=== PATIENT | female | born 1955 | race Caucasian/White ===

== ENCOUNTER 2019-08-26 07:09 | Day surgery (SDC) | payer MEDICARE, OTHER ==
[~2019-08-26] VITALS: Ht 172.7 cm; Wt 110.2 kg
[2019-08-26] MEDS ORDERED: AMLO5 (07:43)
[2019-08-26] MEDS ORDERED: LISI20 (07:43)
[2019-08-26] MEDS ORDERED: PANT40 (07:43)
[2019-08-26] MEDS ORDERED: ALBU3IS (07:44)
[2019-08-26] MEDS ORDERED: OXYC5 (07:44)
== END 2019-08-26 08:35 | disposition home or self-care (01) ==
LOC: ORSCSDS 07:09
PROVIDERS: Anesthesiology
PROC: 3E0R33Z Introduction of Anti-inflammatory into Spinal Canal, Percutaneous Approach (ICD-10-PCS; principal; 2019-08-26 08:15)
DX: M51.16 Intervertebral disc disorders with radiculopathy, lumbar region (principal); I10 Essential (primary) hypertension; K21.9 Gastro-esophageal reflux disease without esophagitis; J45.909 Unspecified asthma, uncomplicated; B19.10 Unspecified viral hepatitis B without hepatic coma; E66.9 Obesity, unspecified; Z68.36 Body mass index [BMI] 36.0-36.9, adult; Z87.891 Personal history of nicotine dependence; Z79.899 Other long term (current) drug therapy
CPT/HCPCS: J1040

== ENCOUNTER 2020-03-09 10:54 | Day surgery (SDC) | payer MEDICARE, OTHER ==
[~2020-03-09] VITALS: Ht 172.7 cm; Wt 110.3 kg
[~2020-03-09 10:54] MED LIST: ALBU3IS; AMLO5; LISI20; OXYC5; PANT40
[2020-03-09] MEDS ORDERED: ATOR20 PO (11:07)
[2020-03-09] MEDS ORDERED: DICL75ER PO (11:08)
== END 2020-03-09 11:43 | disposition home or self-care (01) ==
LOC: ORSCSDS 10:54
PROVIDERS: Anesthesiology
PROC: 3E0R33Z Introduction of Anti-inflammatory into Spinal Canal, Percutaneous Approach (ICD-10-PCS; principal; 2020-03-09 11:45)
DX: M51.16 Intervertebral disc disorders with radiculopathy, lumbar region (principal); B19.10 Unspecified viral hepatitis B without hepatic coma; J45.909 Unspecified asthma, uncomplicated; K21.9 Gastro-esophageal reflux disease without esophagitis; I10 Essential (primary) hypertension; E66.01 Morbid (severe) obesity due to excess calories; Z68.36 Body mass index [BMI] 36.0-36.9, adult; Z87.891 Personal history of nicotine dependence; Z79.899 Other long term (current) drug therapy
CPT/HCPCS: J1040

== ENCOUNTER 2020-06-17 10:22 | Day surgery (SDC) | payer MEDICARE, OTHER ==
[~2020-06-17] VITALS: Ht 172.7 cm; Wt 112.6 kg
[~2020-06-17 10:22] MED LIST changes: +ATOR20 PO; +DICL75ER PO
== END 2020-06-17 11:35 | disposition home or self-care (01) ==
LOC: ORSCSDS 10:22
PROVIDERS: Anesthesiology
PROC: 3E0R33Z Introduction of Anti-inflammatory into Spinal Canal, Percutaneous Approach (ICD-10-PCS; principal; 2020-06-17 11:30)
DX: M51.16 Intervertebral disc disorders with radiculopathy, lumbar region (principal); I10 Essential (primary) hypertension; J45.909 Unspecified asthma, uncomplicated; B19.10 Unspecified viral hepatitis B without hepatic coma; K21.9 Gastro-esophageal reflux disease without esophagitis; E66.9 Obesity, unspecified; Z68.38 Body mass index [BMI] 38.0-38.9, adult; Z87.891 Personal history of nicotine dependence; Z79.899 Other long term (current) drug therapy
CPT/HCPCS: J1040

== ENCOUNTER 2021-01-29 03:51 | Emergency (ER) | payer MEDICARE, OTHER ==
[~2021-01-29] VITALS: Ht 172.7 cm; Wt 111.1 kg
[~2021-01-29 03:51] MED LIST changes: -LISI20; +LISI20 PO
[2021-01-29 05:29] LABS: Influenza A, PCR NEGATIVE (NEGATIVE); Influenza B, PCR NEGATIVE (NEGATIVE); Resp Syncytial Virus, PCR NEGATIVE (NEGATIVE); SARS-Cov-2 (COVID-19) PCR, MMC NEGATIVE (NEGATIVE)
== END 2021-01-29 07:38 | disposition home or self-care (01) ==
LOC: ER 03:51
PROVIDERS: Emergency Medicine
DX: J20.9 Acute bronchitis, unspecified (principal); Z20.822 Contact with and (suspected) exposure to COVID-19; I10 Essential (primary) hypertension; Z87.891 Personal history of nicotine dependence; Z88.5 Allergy status to narcotic agent; Z88.8 Allergy status to other drugs, medicaments and biological substances; Z79.899 Other long term (current) drug therapy
CPT/HCPCS: 0241U; 87081; 87430; 99283

== ENCOUNTER → 2021-05-31 | Outpatient (CLI) | payer MEDICARE, OTHER ==
[2021-05-31 10:00] LABS: Source, Urine Clean Catch
[2021-05-31 12:04] LABS: Appearance, Urine Cloudy (Clear); Bilirubin, Urine Neg (Neg); Blood, Urine 2+ (Neg); Color, Urine Yellow (P-Yellow); Glucose Qualitative, Urine Neg (Neg); Ketones, Urine Neg (Neg); Leukocyte Esterase, Urine 2+ (Neg); Nitrite, Urine Neg (Neg); Protein, Urine 2+ (Neg); Specific Gravity, Urine 1.015 (1.003-1.022); Urobilinogen, Urine NORM (Normal)
[2021-05-31 12:38] LABS: Bacteria Few /hpf; Red Blood Cells, Urine 25-50 /hpf (0-2); Squamous Epithelial Cells Few /hpf (Few); White Blood Cells, Urine 50-100 /hpf (0-5)
== END ==
LOC: LAB SHORT 08:30
PROVIDERS: Physician Assistant Medical
DX: N30.90 Cystitis, unspecified without hematuria (principal)
CPT/HCPCS: 81001; 87077; 87086; 87186

== ENCOUNTER 2021-08-01 14:09 | Emergency (ER) | payer MEDICARE, OTHER ==
[~2021-08-01] VITALS: Ht 157.5 cm; Wt 110.2 kg
[~2021-08-01 14:09] MED LIST changes: -CEFP200 PO; -LISI5 PO; -ONDA4 PO
[2021-08-01 15:00] LABS: BASOPHILS ABSOLUTE AUTO 0.03 K/mm3 (0.00-0.23); BASOPHILS PERCENT AUTO 1 % (0-2); EOSINOPHILS ABSOLUTE AUTO 0.27 K/mm3 (0.00-0.68); EOSINOPHILS PERCENT AUTO 4 % (0-6); Hemoglobin 13.3 g/dL (11.5-16.0); IMMATURE GRAN ABSOLUTE AUTO 0.02 K/mm3 (0.00-0.10); IMMATURE GRAN PERCENT AUTO 0 % (0-1); LYMPHOCYTES ABSOLUTE AUTO 1.54 K/mm3 (0.84-5.20); LYMPHOCYTES PERCENT AUTO 23 % (21-46); MONOCYTES PERCENT AUTO 8 % (4-13); Mean Corpuscular HGB 30.3 pg (26.0-34.0); Mean Corpuscular HGB Conc 32.4 g/dL (31.5-36.5); Mean Corpuscular Volume 93 fL (80-100); Mean Platelet Volume 9.9 fL (9.1-12.4); NEUTROPHILS ABSOLUTE AUTO 4.24 K/mm3 (1.96-9.15); NEUTROPHILS PERCENT AUTO 64 % (41-73); Platelet Count 315 K/mm3 (150-400); RDW Coefficient Variation 13.2 % (11.7-14.2); RDW Standard Deviation 45.4 fL (35.1-46.3); Red Blood Cell Count 4.39 M/mm3 (3.80-5.20)
[2021-08-01 15:10] LABS: Albumin, Blood 3.9 g/dL (3.4-5.0); Bilirubin, Total 0.3 mg/dL (0.1-1.0); Bun/Creatinine Ratio 26.2 (12.0-20.0); Calcium, Blood 10.7 mg/dL (8.5-10.1); Creatinine, Blood 0.8 mg/dL (0.40-1.00); Globulin, Blood 4.1 g/dL (2.2-4.0); Potassium, Blood 4.6 mmol/L (3.5-5.5)
[2021-08-01 15:51] LABS: Source, Urine Clean Catch
[2021-08-01 16:04] LABS: Appearance, Urine Clear (Clear); Bilirubin, Urine Neg (Neg); Blood, Urine Neg (Neg); Color, Urine Yellow (P-Yellow); Glucose Qualitative, Urine Neg (Neg); Ketones, Urine Neg (Neg); Leukocyte Esterase, Urine 1+ (Neg); Nitrite, Urine Neg (Neg); Protein, Urine Neg (Neg); Specific Gravity, Urine 1.025 (1.003-1.022); Urobilinogen, Urine NORM (Normal)
[2021-08-01 16:19] LABS: Bacteria Few /hpf; Red Blood Cells, Urine 0-2 /hpf (0-2); Squamous Epithelial Cells Few /hpf (Few)
[2021-08-01] MEDS ORDERED: LISI5 PO (17:01)
[2021-08-01] MEDS ORDERED: ONDA4 PO (17:26)
[2021-08-01] MEDS ORDERED: CEFP200 PO (17:26)
== END 2021-08-01 17:42 | disposition home or self-care (01) ==
LOC: ER 14:09
PROVIDERS: Physician Assistant
DX: N12 Tubulo-interstitial nephritis, not specified as acute or chronic (principal); I10 Essential (primary) hypertension; Z79.899 Other long term (current) drug therapy; Z87.891 Personal history of nicotine dependence; Z88.5 Allergy status to narcotic agent
CPT/HCPCS: 36415; 74176; 80053; 81001; 83690; 85025; A9270; J1885

== ENCOUNTER → 2021-08-01 | Outpatient (CLI) | payer MEDICARE, OTHER ==
[~2021-08-01] MED LIST changes: +CEFP200 PO; +LISI5 PO; +ONDA4 PO
== END ==
LOC: LAB SHORT 13:35 → LAB 13:35
DX: R10.11 Right upper quadrant pain (principal)
CPT/HCPCS: 87086

== ENCOUNTER 2021-11-17 10:59 | Emergency (ER) | payer MEDICARE, OTHER ==
[~2021-11-17] VITALS: Ht 172.7 cm; Wt 104.3 kg
[~2021-11-17 10:59] MED LIST changes: +CEFP200 PO; +LISI5 PO; +ONDA4 PO
== END 2021-11-17 12:31 | disposition home or self-care (01) ==
LOC: ER 10:59
DX: S50.02XA Contusion of left elbow, initial encounter (principal); S20.212A Contusion of left front wall of thorax, initial encounter; I10 Essential (primary) hypertension; Z88.8 Allergy status to other drugs, medicaments and biological substances; Z88.5 Allergy status to narcotic agent; Z79.899 Other long term (current) drug therapy; Z87.891 Personal history of nicotine dependence; W18.30XA Fall on same level, unspecified, initial encounter
CPT/HCPCS: 71046; 73080; 99283-25

== ENCOUNTER 2022-03-16 10:37 | Day surgery (SDC) | payer MEDICARE, OTHER ==
[~2022-03-16] VITALS: Ht 172.7 cm; Wt 108.5 kg
[2022-03-16] MEDS ORDERED: ALBU90OI INH (11:31)
== END 2022-03-16 14:10 | disposition home or self-care (01) ==
LOC: ORSCSDS 10:37
PROVIDERS: Orthopaedic Surgery
PROC: 0LB70ZZ Excision of Right Hand Tendon, Open Approach (ICD-10-PCS; principal; 2022-03-16 12:00)
DX: M67.431 Ganglion, right wrist (principal); I10 Essential (primary) hypertension; G47.33 Obstructive sleep apnea (adult) (pediatric); K21.9 Gastro-esophageal reflux disease without esophagitis; Z87.891 Personal history of nicotine dependence; Z79.899 Other long term (current) drug therapy
CPT/HCPCS: 88304; J0690; J1100; J1885; J2405; J2704; J2795; J3010; J7120

== ENCOUNTER 2022-05-14 07:29 | Day surgery (SDC) | payer MEDICARE, OTHER ==
[~2022-05-14] VITALS: Ht 170.2 cm; Wt 110.0 kg
[~2022-05-14 07:29] MED LIST changes: +ALBU90OI INH
--- NOTE | 2022-05-14 09:25 | NUR ---
05/14/22 0925 Julita Vines HISTORY, CHART, MEDICATIONS AND ALLERGIES REVIEWED BEFORE START OF PROCEDURE. PATIENT CONFIRMS NPO STATUS AND AGREES WITH SCHEDULED PROCEDURE. 3-LEAD EKG REVIEWED WITH PHYSICIAN PRIOR TO START OF PROCEDURE. MONITOR INTACT WITH CONTINUOUS PULSE OXIMETRY,CAPNOGRAPHY, 3-LEAD EKG, INTERMITTENT BP. SUPPLEMENTAL O2 TO BE TITRATED THROUGHOUT PROCEDURE TO MAINTAIN O2 SATURATION ABOVE 90%. PATIENT DETERMINED TO BE ASA APPROPRIATE FOR PROPOFOL SEDATION PRIOR TO START OF PROCEDURE BY DR. SCHMIDT
--- NOTE | 2022-05-14 10:05 | NUR ---
Discharge instructions reviewed with patient. Patient verbalizes understanding. Copy given to patient to take home. Patient States Post-Procedure ride home has been arranged. Discharged via wheelchair to private car for ride home.
== END 2022-05-14 22:53 | disposition home or self-care (01) ==
LOC: ORSCMMR 07:29 → ORD 08:30 → ORSCMMR 08:30
PROVIDERS: Internal Medicine Gastroenterology
PROC: 0DJD8ZZ Inspection of Lower Intestinal Tract, Via Natural or Artificial Opening Endoscopic (ICD-10-PCS; principal; 2022-05-14 08:30)
DX: Z12.11 Encounter for screening for malignant neoplasm of colon (principal); Z86.010 Personal history of colon polyps; I10 Essential (primary) hypertension; Z79.899 Other long term (current) drug therapy
CPT/HCPCS: J2704; J7120

== ENCOUNTER → 2022-07-23 | Outpatient (CLI) | payer MEDICARE, OTHER | END | disposition home or self-care (01) | LOC: PLD 07:24 → LAB 07:24 → LAB SHORT 07:24 | DX: M67.472 Ganglion, left ankle and foot (principal); R22.42 Localized swelling, mass and lump, left lower limb | CPT/HCPCS: 88108 ==

== ENCOUNTER 2022-11-26 06:11 | Day surgery (SDC) | payer MEDICARE, OTHER ==
[~2022-11-26] VITALS: Ht 170.2 cm; Wt 99.6 kg
--- NOTE | 2022-11-26 07:44 | NUR ---
11/26/22 0744 Scarlet Shelton ARMS SECURED ON PADDED ARM BOARDS.
[2022-11-26 08:30] VITALS: BP 122/65
--- NOTE | 2022-11-26 08:30 | NUR ---
11/26/22 0060 HEATHER PATTEN pt had pulled iv out leaving or. appeared to be patent but wehen removed in stepdown, it was already completeley removed catheter was intact and site was wdl. bleeding had stopped. coban and compression gauze placed as usual.
== END 2022-11-26 08:50 | disposition home or self-care (01) ==
LOC: ORSCSDS 06:11
PROVIDERS: Podiatrist Foot & Ankle Surgery
PROC: 0JBR0ZX Excision of Left Foot Subcutaneous Tissue and Fascia, Open Approach, Diagnostic (ICD-10-PCS; principal; 2022-11-26 07:30)
DX: M67.472 Ganglion, left ankle and foot (principal); I10 Essential (primary) hypertension; J44.9 Chronic obstructive pulmonary disease, unspecified; G47.33 Obstructive sleep apnea (adult) (pediatric); Z87.891 Personal history of nicotine dependence; Z79.899 Other long term (current) drug therapy
CPT/HCPCS: 88304; J0690; J1100; J1885; J2001; J2250; J2405; J2704; J3010; J7120

== ENCOUNTER 2022-12-12 06:56 | Day surgery (SDC) | payer MEDICARE, OTHER ==
[2022-12-12] VITALS (11 sets, daily range): BP systolic 107–161; BP diastolic 52–123
[~2022-12-12] VITALS: Ht 166 cm; Wt 99.2 kg
--- NOTE | 2022-12-12 07:24 | NUR ---
History, Chart, Medications and Allergies reviewed before start of procedure. Ambulatory in Day Surgery. Pre-Op teaching done. Pt verbalizes understanding. Patient confirms NPO status and agrees with scheduled surgery. Lungs clear T/O to Auscultation. Patient States Post-Procedure ride home has been arranged.
--- NOTE | 2022-12-12 08:02 | NUR ---
12/12/22 0802 Marleni Humphrey HISTORY, CHART, MEDICATIONS AND ALLERGIES REVIEWED BEFORE START OF PROCEDURE. PATIENT CONFIRMS NPO STATUS AND AGREES WITH SCHEDULED PROCEDURE. 3-LEAD EKG REVIEWED WITH PHYSICIAN PRIOR TO START OF PROCEDURE. MONITOR INTACT WITH CONTINUOUS PULSE OXIMETRY,CAPNOGRAPHY, 3-LEAD EKG, INTERMITTENT BP. SUPPLEMENTAL O2 TO BE TITRATED THROUGHOUT PROCEDURE TO MAINTAIN O2 SATURATION ABOVE 90%. PATIENT DETERMINED TO BE ASA APPROPRIATE FOR PROPOFOL SEDATION PRIOR TO START OF PROCEDURE BY .HURRICAINE SPRAY AND BITE BLOCK PLACED.
== END 2022-12-12 08:56 | disposition home or self-care (01) ==
LOC: ORSCMMR 06:56 → ORD 08:00 → ORSCMMR 08:56
PROVIDERS: Internal Medicine Gastroenterology
PROC: 0DB98ZX Excision of Duodenum, Via Natural or Artificial Opening Endoscopic, Diagnostic (ICD-10-PCS; principal; 2022-12-12 08:00)
PROC: 0DB48ZX Excision of Esophagogastric Junction, Via Natural or Artificial Opening Endoscopic, Diagnostic (ICD-10-PCS; principal; 2022-12-12 08:00)
PROC: 0DB58ZX Excision of Esophagus, Via Natural or Artificial Opening Endoscopic, Diagnostic (ICD-10-PCS; principal; 2022-12-12 08:00)
PROC: 0DB68ZX Excision of Stomach, Via Natural or Artificial Opening Endoscopic, Diagnostic (ICD-10-PCS; principal; 2022-12-12 08:00)
DX: R10.13 Epigastric pain (principal); I10 Essential (primary) hypertension; K44.9 Diaphragmatic hernia without obstruction or gangrene; K59.09 Other constipation; Z79.899 Other long term (current) drug therapy
CPT/HCPCS: 88305; 88342; A9270; J2704; J7120

== ENCOUNTER → 2023-11-20 | Outpatient (CLI) | payer MEDICARE, OTHER | LOC: LAB 15:15 → LAB SHORT 15:15 | DX: R30.0 Dysuria (principal) | CPT/HCPCS: 87077; 87086; 87186 ==

== ENCOUNTER → 2023-12-02 | Outpatient (CLI) | payer MEDICARE, OTHER | LOC: LAB 09:22 → LAB SHORT 09:22 | DX: R30.0 Dysuria (principal) | CPT/HCPCS: 87077; 87086; 87186 ==